=== PATIENT | female | born 1990 | race African-American/Black ===

== ENCOUNTER 2022-10-23 06:10 | Emergency (ER) | payer MEDICAID ==
[~2022-10-23] VITALS: Ht 172.7 cm; Wt 85.0 kg
[2022-10-23] MEDS ORDERED: SODIUM CHLORIDE 0.9% 2,550 ML IV ONE (06:45)
[2022-10-23] MEDS ORDERED: 0.9% SODIUM CHLORIDE 10 ML SYRINGE IVP PRN (06:45)
[2022-10-23] MEDS ORDERED: ACETAMINOPHEN 1000 MG/ISO-OSM 100 ML IV ONE (06:45)
[2022-10-23 06:52] LABS: BASOPHILS % (AUTO) 0.1 % (0.0-2.0); EOSINOPHILS % (AUTO) 0.1 % (1.0-6.0); HEMATOCRIT 30.2 % (36-46); LYMPHOCYTES # (AUTO) 1.5 K/uL (1.0-4.8); LYMPHOCYTES % (AUTO) 15.3 % (22.0-44.0); MEAN CORPUSCULAR HEMOGLOBIN 24.2 pg (26.0-34.0); MEAN CORPUSCULAR VOLUME 73 fL (80-100); MONOCYTES % (AUTO) 10.4 % (2.0-9.0); NEUTROPHILS # (AUTO) 7.5 K/uL (1.8-7.7); NEUTROPHILS % (AUTO) 74.1 % (40.0-70.0); PLATELET COUNT (AUTO) 142 K/uL (150-450); RED BLOOD CELL COUNT(AUTO) 4.13 MIL/uL (4.00-5.20)
[2022-10-23] MEDS ORDERED: ONDANSETRON HCL 4 MG/2 ML VIAL IVP ONE (07:00)
[2022-10-23 07:01] LABS: ANION GAP 11 mmol/L (8-16); CALCIUM, TOTAL 9.2 mg/dL (8.8-10.5); CARBON DIOXIDE 23 mmol/L (22-29); CHLORIDE 101 mmol/L (98-107); CREATININE 0.71 mg/dL (0.60-1.30); GLOMERULAR FILTR. RATE CALC > 60 mL/min (>60); GLUCOSE,RANDOM 118 mg/dL (70-110); INR 1.2 (0.9-1.1); POTASSIUM 3.7 mmol/L (3.5-5.1); PROTHROMBIN TIME 12.4 SEC (9.4-11.6); SODIUM SERUM 135 mmol/L (136-145)
[2022-10-23 07:18] LABS: B-TYPE NATRIURETIC PEPTIDE 10 pg/mL (0-100)
[2022-10-23] MEDS ORDERED: SODIUM CHLORIDE 0.9% 100 ML ONE (07:21)
[2022-10-23] MEDS ORDERED: IOHEXOL 350 MG/ML 100 ML VIAL ONE (07:21)
[2022-10-23 07:25] LABS: ALANINE AMINOTRANSFERASE 31 U/L (12-78); ALBUMIN 3.4 g/dL (3.4-5.0); ALKALINE PHOSPHATASE 92 U/L (46-116); ASPARTATE AMINOTRANSFERASE 26 U/L (15-37); BILIRUBIN,TOTAL 0.6 mg/dL (0.1-1.0); CREATINE KINASE, TOTAL ONLY 70 U/L (26-192); HCG,QUANTITATIVE < 1 mIU/mL (0-6); PHOSPHORUS 2.1 mg/dL (2.5-4.9); TOTAL PROTEIN, SERUM 8.1 g/dL (6.4-8.2)
[2022-10-23] MEDS ORDERED: DEXAMETHASONE SOD PHOS 4 MG/ML VIAL IVP ONE (08:00)
[2022-10-23] MEDS ORDERED: MAGNESIUM SULFATE 1 GM in DEXTROSE 5%-WATER 50 ML IV ONE (08:00)
[2022-10-23] MEDS ORDERED: POTASSIUM PHOS,M-BASIC-D-BASIC 10 MMOL in DEXTROSE 5%-WATER 100 ML IV ONE (08:00)
[2022-10-23 08:46] LABS: APPEARANCE,URINE CLEAR (CLEAR); BILIRUBIN,URINE NEGATIVE (NEGATIVE); GLUCOSE, URINE (UA) NEGATIVE (NEGATIVE); LEUKOCYTE ESTERASE ,URINE NEGATIVE (NEGATIVE); NITRATE,URINE NEGATIVE (NEGATIVE); OCCULT BLOOD,URINE LARGE (NEGATIVE); PH,URINE 6.5 (5.0-8.0); PROTEIN,URINE NEGATIVE (NEGATIVE); SPECIFIC GRAVITIY, URINE 1.009 (1.003-1.030); UROBILINOGEN,URINE <=1.0 mg/dL (<=1.0)
[2022-10-23 08:54] LABS: BACTERIA,URINE None Seen /HPF (None Seen); RBC,URINE 51-100 /HPF (0-2); SQUAMOUS EPITHELIAL CELL,UR Rare /LPF (None Seen); WBC,URINE None Seen /HPF (0-5)
[2022-10-23] MEDS ORDERED: AMOX1TAB16 PO (11:51)
[2022-10-23] MEDS ORDERED: IBUP-1492 PO (11:52)
[2022-10-23 12:22] VITALS: BP 120/62; PULSE 100; RESP 20; TEMP 99
== END 2022-10-23 12:24 | disposition home or self-care (01) ==
LOC: EMS 06:10
DX: J03.90 Acute tonsillitis, unspecified (principal)
CPT/HCPCS: 99285; 96365; 70491; 71045; 96375; 96367; 80053; 81001; 82550; 83605; 83735; 83880; 84100; 84484; 84702; 85025; 85610; 86308; 87040; 93005; 96368; 84145; J1100; J2405; Q9967; J7060 ×2; J3490; J3475; J7030; J7050; J0131

== ENCOUNTER 2023-03-01 20:05 | Emergency (ER) | payer MEDICAID ==
[~2023-03-01] VITALS: Ht 165.1 cm; Wt 73.0 kg
[~2023-03-01 20:05] MED LIST: AMOX1TAB16 PO; IBUP-1492 PO
[2023-03-01 20:12] VITALS: TEMP 99.6
[2023-03-01] MEDS ORDERED: ACETAMINOPHEN 500 MG TABLET PO ONE (21:45)
[2023-03-01] MEDS ORDERED: LIDOCAINE 2% VISCOUS 15 ML SOLUTION UDCUP PO ONE (21:45)
[2023-03-01] MEDS ORDERED: AMOX250C4 PO (22:14)
[2023-03-01 22:25] VITALS: BP 118/73; PULSE 89; RESP 16
== END 2023-03-01 22:26 | disposition home or self-care (01) ==
LOC: EMS 20:05
DX: J03.90 Acute tonsillitis, unspecified (principal)
CPT/HCPCS: 87430; 99283

== ENCOUNTER 2023-04-13 15:54 | Emergency (ER) | payer MEDICAID ==
[~2023-04-13] VITALS: Ht 165.1 cm; Wt 68.2 kg
[~2023-04-13 15:54] MED LIST changes: +AMOX250C4 PO
[2023-04-13 16:07] VITALS: BP 120/73; PULSE 88; RESP 18; TEMP 98.5
[2023-04-13 16:34] LABS: COVID AG,FIA SOURCE NASAL SWAB
[2023-04-13 17:15] LABS: SARS-COV2 (COVID) ANTIGEN,FIA Negative (Negative)
[2023-04-13 17:27] LABS: INFLUENZA TYPE A NEGATIVE FOR TYPE A (NEGATIVE); INFLUENZA TYPE B NEGATIVE FOR TYPE B (NEGATIVE)
[2023-04-13] MEDS ORDERED: PENI500T2 PO (18:37)
== END 2023-04-13 18:56 | disposition home or self-care (01) ==
LOC: EMS 15:55
DX: J02.9 Acute pharyngitis, unspecified (principal); Z20.822 Contact with and (suspected) exposure to COVID-19
CPT/HCPCS: 87430; 87804; 99283

== ENCOUNTER 2024-06-21 12:00 | Emergency (ER) | payer MEDICAID, OTHER ==
[~2024-06-21] VITALS: Ht 165.1 cm; Wt 72.7 kg
[~2024-06-21 12:00] MED LIST changes: -AMOX1TAB16 PO; -AMOX250C4 PO; -IBUP-1492 PO; +PENI500T2 PO
[2024-06-21 12:15] VITALS: BP 110/60; PULSE 105; RESP 18; TEMP 98.8; O2SAT 100
[2024-06-21 12:43] LABS: COVID AG,FIA SOURCE NASAL SWAB
[2024-06-21 13:29] LABS: INFLUENZA TYPE A NEGATIVE FOR TYPE A (NEGATIVE); INFLUENZA TYPE B NEGATIVE FOR TYPE B (NEGATIVE); SARS-COV2 (COVID) ANTIGEN,FIA Negative (Negative)
[2024-06-21] MEDS ORDERED: ACET-66 PO (13:49)
[2024-06-21] MEDS ORDERED: IBUP-45 PO (13:49)
[2024-06-21] MEDS ORDERED: GUAIFDM PO (13:49)
== END 2024-06-21 14:11 | disposition home or self-care (01) ==
LOC: EMS 12:00
DX: J06.9 Acute upper respiratory infection, unspecified (principal); Z20.822 Contact with and (suspected) exposure to COVID-19
CPT/HCPCS: 87804; 99283

== ENCOUNTER 2024-07-02 09:13 | Emergency (ER) | payer OTHER ==
[~2024-07-02] VITALS: Ht 154.9 cm; Wt 70.9 kg
[~2024-07-02 09:13] MED LIST changes: +ACET-66 PO; +GUAIFDM PO; +IBUP-45 PO
[2024-07-02 09:17] VITALS: TEMP 98.4
[2024-07-02 09:25] VITALS: BP 115/64; PULSE 69; RESP 18; O2SAT 100
[2024-07-02] MEDS ORDERED: LORA10TA7 PO (09:27)
== END 2024-07-02 09:53 | disposition home or self-care (01) ==
LOC: EMS 09:15
DX: R04.0 Epistaxis (principal); J30.9 Allergic rhinitis, unspecified
CPT/HCPCS: 99282; Z7502